=== PATIENT | female | born 1965 | race Caucasian/White ===

== ENCOUNTER → 2017-12-03 | Outpatient (CLI) | payer OTHER ==
[2017-12-04 02:12] LABS: TESTOSTERONE 10 ng/dL (3-41)
== END ==
LOC: M.LAB 15:41
PROVIDERS: Obstetrics & Gynecology
DX: N89.8 Other specified noninflammatory disorders of vagina (principal); R68.82 Decreased libido

== ENCOUNTER → 2018-05-08 | Outpatient (CLI) | payer OTHER | LOC: M.RAD 13:53 | DX: Z12.31 Encounter for screening mammogram for malignant neoplasm of breast (principal) ==

== ENCOUNTER → 2018-08-02 | Outpatient (CLI) | payer OTHER ==
[2018-08-02 21:08] LABS: TESTOSTERONE 43 ng/dL (3-41)
== END ==
LOC: M.LAB 15:54
PROVIDERS: Obstetrics & Gynecology
DX: N95.1 Menopausal and female climacteric states (principal); R68.82 Decreased libido

== ENCOUNTER → 2018-09-05 | Outpatient (CLI) | payer OTHER | LOC: M.MRI 07:35 | DX: S76.112A Strain of left quadriceps muscle, fascia and tendon, initial encounter (principal); M79.605 Pain in left leg; M79.662 Pain in left lower leg; X58.XXXA Exposure to other specified factors, initial encounter; Y93.89 Activity, other specified; Y92.89 Other specified places as the place of occurrence of the external cause; Y99.8 Other external cause status ==

== ENCOUNTER → 2018-10-01 | Outpatient (CLI) | payer OTHER | LOC: M.RAD 09-27 11:04 | DX: N63.11 Unspecified lump in the right breast, upper outer quadrant (principal); N64.59 Other signs and symptoms in breast; R92.2 Inconclusive mammogram ==

== ENCOUNTER → 2018-10-02 | Outpatient (CLI) | payer OTHER ==
[2018-10-02 09:43] LABS: ABSOLUTE EOSINOPHILS 0.1 thou/uL (0.0-0.7); ABSOLUTE LYMPHOCYTES 1.9 thou/uL (0.8-5.3); ABSOLUTE MONOCYTES 0.5 thou/uL (0.0-1.2); ABSOLUTE NEUTROPHILS 3.7 thou/uL (1.6-8.1); BASOPHILS 0.7 %; EOSINOPHILS 2.1 %; HEMATOCRIT 40.4 % (37.0-47.0); HEMOGLOBIN 13.8 gm/dL (12.0-15.0); LYMPHOCYTES 30.2 %; MCH 30.3 pg (26.0-34.0); MCHC 34.1 g/dL (28.0-37.0); MCV 88.8 fL (80.0-100.0); MONOCYTES 7.7 %; MPV 9.3 fl. (7.2-11.1); NUCLEATED RBCS 0 /100WBC; PLATELET COUNT* 240 thou/uL (150-400); POLYS 59.3 %; RBC 4.55 mil/uL (4.20-5.00); RDW-CV 12.9 % (10.5-14.5); WBC 6.2 thou/uL (4.0-11.0)
[2018-10-02 11:29] LABS: ALKALINE PHOSPHATASE 75 U/L (46-116); ANION GAP 6 mmol/L (7-16); BUN 18 mg/dL (7-18); CALCIUM 8.7 mg/dL (8.5-10.1); CHLORIDE 104 mmol/L (98-107); CO2 29 mmol/L (21-32); CREATININE 0.8 mg/dL (0.6-1.3); GLUCOSE 88 mg/dL (70-99); POTASSIUM 4.1 mmol/L (3.5-5.1); SGOT 15 U/L (15-37); SGPT 18 U/L (30-65); SODIUM 139 mmol/L (136-145); TOTAL BILIRUBIN 0.9 mg/dL (<0.1-1.0); TOTAL PROTEIN 7.2 g/dL (6.4-8.2)
[2018-10-02 12:38] LABS: CHOLESTEROL 210 mg/dL (<200); HDL CHOLESTEROL 74 mg/dL (>40); LDL CHOLESTEROL 129 mg/dL (<100); TC:HDL 2.8 Ratio (Not establshd); TRIGLYCERIDE 38 mg/dL (<150); VLDL 8 mg/dL (<40)
[2018-10-02 12:39] LABS: SERUM ASSESSMENT Clear
== END ==
LOC: M.LAB 09:09
PROVIDERS: Family Medicine
DX: Z01.419 Encounter for gynecological examination (general) (routine) without abnormal findings (principal); Z13.220 Encounter for screening for lipoid disorders; Z13.31 Encounter for screening for depression; Z13.29 Encounter for screening for other suspected endocrine disorder; N63.10 Unspecified lump in the right breast, unspecified quadrant; N64.59 Other signs and symptoms in breast

== ENCOUNTER → 2018-11-13 | Outpatient (CLI) | payer OTHER ==
[2018-11-14 02:10] LABS: CA 125 12.3 U/mL (0.0-38.1); TESTOSTERONE 50 ng/dL (3-41)
== END ==
LOC: M.ULTRA 13:06
PROVIDERS: Obstetrics & Gynecology
DX: N83.01 Follicular cyst of right ovary (principal); Z97.5 Presence of (intrauterine) contraceptive device